=== PATIENT | male | born 1955 ===

== ENCOUNTER → 2022-05-07 | Day surgery (SDC) | payer MEDICARE, OTHER ==
[~2022-05-07] VITALS: Ht 180.3 cm; Wt 108.9 kg
[~2022-05-07] MED LIST: ASPIRIN EC81 MG PO; ATORVASTATIN CA80 MG PO; CHLORTHALIDONE25 MG PO; LASIX40 MG PO; LOVAZA1 GM PO; PANTOPRAZOLE SO40 MG PO; POTASSIUM CHLO10 ME1 PO
== END | disposition home or self-care (01) ==
LOC: FAS 07:52
DX: Z12.11 Encounter for screening for malignant neoplasm of colon (principal); K63.5 Polyp of colon; Z86.010 Personal history of colon polyps; I10 Essential (primary) hypertension; I48.91 Unspecified atrial fibrillation; E78.5 Hyperlipidemia, unspecified; Z79.82 Long term (current) use of aspirin; Z79.899 Other long term (current) drug therapy
CPT/HCPCS: 93005; J2704; J7120